=== PATIENT | female | born 1960 | race Caucasian/White ===

== ENCOUNTER 2017-09-05 08:45 | Day surgery (SDC) | payer OTHER ==
[~2017-09-05] VITALS: Ht 165.1 cm; Wt 72.5 kg
[~2017-09-05 08:45] MED LIST: ACID REDUCER 1150 MG PO; ADULT ASPIRIN81 MG PO; ALBU90OI INH; BUSP10 PO; CLON.1 PO; CONEST1.25; CYCL10 PO; Crestor20 MG PO; DEMEROL; DIAZ5 PO; DULO60; DULO60 PO; Desyrel50 MG PO; ESTR2 PO; Estrace Vagin42.5 GM PV; FURO80 PO; Glucophage1000 MG PO; HYDCOR2.5A PR; KETOROLAC60 MG/2 ML IM; Kenalog-40 m40 MG/ML; LANS30EC PO; LAVAP17G PO; LEVO-T75 MCG PO; LEVSOD100; LEVSOD150 PO; LISI5 PO; LUNESTA; MEPERIDINE HCL PO; METO50ER; MUCINEX DM PO; Mobic15 MG PO; NYST100SU MT; Nitrostat0.4 MG SL; OXYACE5T PO; PANT40 PO; RXOXYACE PO; SUCR1 PO; TOPI100 PO; TRAZ100 PO; TRAZ50; TRET.1TC TOP; TRIA80TC TOP; VITAMIN D32000 UNIT PO; ZYRTEC10 M1 PO
== END 2017-09-05 11:04 | disposition home or self-care (01) ==
LOC: ORSCSDS 08:45
PROVIDERS: Internal Medicine Gastroenterology
PROC: 0DBN8ZX Excision of Sigmoid Colon, Via Natural or Artificial Opening Endoscopic, Diagnostic (ICD-10-PCS; principal; 2017-09-05 10:00)
PROC: 0DBM8ZX Excision of Descending Colon, Via Natural or Artificial Opening Endoscopic, Diagnostic (ICD-10-PCS; principal; 2017-09-05 10:00)
DX: Z86.010 Personal history of colon polyps (principal); K63.5 Polyp of colon; K57.30 Diverticulosis of large intestine without perforation or abscess without bleeding; K64.8 Other hemorrhoids; E11.9 Type 2 diabetes mellitus without complications; I10 Essential (primary) hypertension; E03.9 Hypothyroidism, unspecified; Z87.891 Personal history of nicotine dependence; Z79.899 Other long term (current) drug therapy
CPT/HCPCS: 82947; 88305; J0330; J1980; J2405; J7120

== ENCOUNTER 2019-10-23 00:41 | Observation (INO) | payer OTHER ==
[~2019-10-23] VITALS: Ht 165.1 cm; Wt 77.1 kg
[2019-10-23] MEDS ORDERED: ESTRADIOL2 MG PO (03:02)
[2019-10-23] MEDS ORDERED: TRAM50 PO (03:08)
[2019-10-23] MEDS ORDERED: ZOLPIDEM TARTRA10 MG PO (03:09)
[2019-10-23] MEDS ORDERED: Aspir 8181 MG PO (03:12)
[2019-10-23] MEDS ORDERED: PRINIVIL10 MG PO (03:13)
[2019-10-23] MEDS ORDERED: ARIPIPRAZOLE2 M1 PO (03:16)
[2019-10-23] MEDS ORDERED: CLON.5 PO (03:18)
[2019-10-23] MEDS ORDERED: TOPI50 PO (03:18)
[2019-10-23] MEDS ORDERED: FAMO20 PO (03:19)
[2019-10-23 03:58] LABS: Source, Urine Clean Catch
[2019-10-23 04:01] LABS: BASOPHILS ABSOLUTE AUTO 0.08 K/mm3 (0.00-0.23); BASOPHILS PERCENT AUTO 1 % (0-2); EOSINOPHILS PERCENT AUTO 3 % (0-6); Hematocrit 50.2 % (33.0-51.0); IMMATURE GRAN ABSOLUTE AUTO 0.06 K/mm3 (0.00-0.10); IMMATURE GRAN PERCENT AUTO 0 % (0-1); LYMPHOCYTES ABSOLUTE AUTO 5.32 K/mm3 (0.84-5.20); LYMPHOCYTES PERCENT AUTO 36 % (21-46); MONOCYTES ABSOLUTE AUTO 1.26 K/mm3 (0.16-1.47); MONOCYTES PERCENT AUTO 9 % (4-13); Mean Corpuscular HGB 30.1 pg (26.0-34.0); Mean Corpuscular HGB Conc 31.9 g/dL (31.5-36.5); Mean Corpuscular Volume 94 fL (80-100); Mean Platelet Volume 10.3 fL (9.1-12.4); NEUTROPHILS ABSOLUTE AUTO 7.52 K/mm3 (1.96-9.15); NEUTROPHILS PERCENT AUTO 51 % (41-73); Platelet Count 348 K/mm3 (150-400); RDW Coefficient Variation 13.5 % (11.7-14.2); RDW Standard Deviation 47.3 fL (35.1-46.3); Red Blood Cell Count 5.32 M/mm3 (3.80-5.20); White Blood Cell Count 14.74 K/mm3 (4.00-11.30)
[2019-10-23 04:04] LABS: Bilirubin, Urine Neg (Neg); Blood, Urine 1+ (Neg); Glucose Qualitative, Urine Neg (Neg); Ketones, Urine Neg (Neg); Leukocyte Esterase, Urine Neg (Neg); Nitrite, Urine Neg (Neg); Protein, Urine Neg (Neg); Urobilinogen, Urine NORM (Normal); pH, Urine 6.5 (5.0-8.0)
[2019-10-23 04:06] LABS: Appearance, Urine Clear (Clear); Color, Urine Yellow (P-Yellow)
[2019-10-23 04:08] LABS: Bacteria Not Seen /hpf; Red Blood Cells, Urine Rare /hpf (0-2); Squamous Epithelial Cells Few /hpf (Few); White Blood Cells, Urine Not Seen /hpf (0-5)
[2019-10-23 04:13] LABS: Alanine Aminotransfer (ALT/SGP 189 U/L (12-78); Alk Phos 106 U/L (50-136); Anion Gap 5 mmol/L (6-16); Aspartate Aminotrans (AST/SGOT 141 U/L (12-37); Bilirubin, Total 0.5 mg/dL (0.1-1.0); Blood Urea Nitrogen 12 mg/dL (8-24); Bun/Creatinine Ratio 14.2 (12.0-20.0); CO2, Blood 30 mmol/L (21-32); Calcium, Blood 10.5 mg/dL (8.5-10.1); Chloride, Blood 109 mmol/L (98-108); Creatinine, Blood 0.85 mg/dL (0.40-1.00); Globulin, Blood 4.2 g/dL (2.2-4.0); Glomerular Filtration Rate >60 (60-); Glucose, Blood 124 mg/dL (70-99); Potassium, Blood 4.1 mmol/L (3.5-5.5); Sodium, Blood 144 mmol/L (136-145); Total Protein, Blood 8.2 g/dL (6.4-8.2)
--- NOTE | 2019-10-23 10:12 | NUR ---
10/23/19 1012 Nata Mcdaniels PT ON SCHEDULED ANTIBIOTICS
--- NOTE | 2019-10-23 12:45 | NUR ---
PT ARRIVED TO ROOM 233 FROM PACU S/P YEE OLIVER PT REPORTS PAIN 5/10 TO ABD NO NAUSEA AT THIS TIME PT GIVEN CL DIET IF BRITTNEY WILL ADV DIET PT ORIENTED TO ROOM
--- NOTE | 2019-10-23 16:47 | NUR ---
pt amb in hallway to help pass gas
--- NOTE | 2019-10-23 18:51 | NUR ---
AMBULATING DOWN THE VAZ, TOLERATING WELL, TOLERATING LIQUIDS AND REG TRAY WELL, NO ACUTE CHANGES THIS SHIFT.
--- NOTE | 2019-10-24 06:34 | NUR ---
POD 1 S/P LAP BENITO. PT VSS, BP ELEVATED, PT DENIED CP/PRESSURE, STATES WAS R/T INC PAIN. DRESSINGS CDI. PAIN MGD PER EMAR, PT STATES PAIN IMPROVED THIS AM AFTER PASSIG FLATUS. PT BRITTNEY PO, NO N/V. PT AMB INDEP IN HALLS, TOLL WELL. PT EAGER TO D/C HOME. WILL CONT TO MONITOR UNTIL REP GIVEN TO ONCOMING RN.
[2019-10-24] MEDS ORDERED: HYDR1TAB94 PO (10:11)
--- NOTE | 2019-10-24 11:54 | NUR ---
DISCHARGE PT PROVIDED WITH WRITTEN AND VERBAL DISCHARGE INSTRUCTIONS, SHE REPORTED UNDERSTANDING. WRITTEN PRESCRIPTION WAS PROVIDED. PT WAS EDUCATED THAT PRESCRITION WAS WRITTEN FOR PAIN MEDICATION EVERY 6 HOURS DIFFERENT FROM EVERY 4 HOURS WHILE IN THE HOSPITAL. PT WAS EDUCATED ABOUT THIS CHANGE AND EDUCATED THAT ADVIL COULD BE USED FOR BREAKTHROUGH PAIN. PT REPORTED SHE FELT THAT ALTERNATING ADVIL AND [facility]CO WOULD PROVIDE ADEQUATE PAIN MANAGMENT. PT AMBULATED OUT WITHOUT NEED FOR ASSISTANCE. BP ALSO WNL AFTER PAIN WAS TREATED. DR. SHIELDS WAS NOTIFIED OF ELEVATED AM BP WHICH IMPROVED AFTER PAIN MANAGEMENT.
== END 2019-10-24 10:50 | disposition home or self-care (01) ==
LOC: ER 00:41 → ERHOLD 00:42 → SURS 13:15
PROVIDERS: Emergency Medicine; ADMIT Surgery
DX: K81.0 Acute cholecystitis (principal); E11.9 Type 2 diabetes mellitus without complications; I10 Essential (primary) hypertension; K43.9 Ventral hernia without obstruction or gangrene; Z79.82 Long term (current) use of aspirin; Z87.891 Personal history of nicotine dependence; Z88.5 Allergy status to narcotic agent; Z88.0 Allergy status to penicillin; Z88.8 Allergy status to other drugs, medicaments and biological substances; Z79.84 Long term (current) use of oral hypoglycemic drugs; Z11.59 Encounter for screening for other viral diseases
CPT/HCPCS: 36415; 74177; 74300; 76705; 80053; 81001; 83690; 85025; 88304; 96361; 96365; 96375; 96376; 99285-25; A9270-GY; C1729; G0378; J1100; J1885; J1956; J2250; J2270; J2370; J2405; J2704; J3010; J7030; Q9967; U0002

== ENCOUNTER → 2020-10-07 | Outpatient (CLI) | payer OTHER ==
[~2020-10-07] MED LIST changes: +ARIPIPRAZOLE2 M1 PO; +Aspir 8181 MG PO; +CLON.5 PO; +ESTRADIOL2 MG PO; +FAMO20 PO; +HYDR1TAB94 PO; +PRINIVIL10 MG PO; +TOPI50 PO; +TRAM50 PO; +ZOLPIDEM TARTRA10 MG PO
== END | disposition home or self-care (01) ==
LOC: LAB SHORT 13:17 → LAB 13:17
DX: N39.0 Urinary tract infection, site not specified (principal)
CPT/HCPCS: 87086

== ENCOUNTER → 2024-07-23 | Outpatient (CLI) | payer OTHER ==
[2024-07-23 17:11] LABS: Bacterial Vaginosis PCR Negative (NEGATIVE); Candida Group, PCR NOT DETECTED (NOT DETECT); Candida glabrata-krusei, PCR NOT DETECTED (NOT DETECT)
== END ==
LOC: LAB SHORT 15:17 → LAB 15:17
PROVIDERS: Advanced Practice Midwife
DX: N89.8 Other specified noninflammatory disorders of vagina (principal)
CPT/HCPCS: 81515